=== PATIENT | female | born 1950 | race Caucasian/White ===

== ENCOUNTER 2022-02-24 11:22 | Emergency (ER) | payer MEDICARE, OTHER, SELFPAY ==
[2022-02-24 11:28] VITALS: BP 166/98; PULSE 102; RESP 18; TEMP 36.1; O2SAT 98; BMI 29.7
--- NOTE | 2022-02-24 13:00 | ED.GENADULT ---
HPI - General Adult General Chief complaint: Skin/Abscess/Foreign Body Stated complaint: Rash Time Seen by Provider: 02/24/22 11:56 History of Present Illness HPI narrative: Patient complains of itchy rash which is spreading over body which started several days ago she went to Urgent Care they told her it is likely poison suri and gave her a Medrol Dosepak and a prescription for hydrocortisone cream but the rash is still spreading to more parts of the body and is very itchy There is no pain no difficulty breathing no swelling in the mouth or of the tongue or the lips Related Data Previous Rx's Medication Instructions Recorded cetirizine 10 mg capsule 10 mg PO DAILY PRN allergy 02/24/22 symptoms #14 caps hydroxyzine HCl 25 mg tablet 50 mg PO BEDTIME PRN itching #20 02/24/22 tabs Allergies Allergy/AdvReac Type Severity Reaction Status Date / Time Penicillins Allergy Rash Verified 02/24/22 11:27 Sulfa (Sulfonamide Allergy Rash Verified 02/24/22 11:27 Antibiotics) Review of Systems Review of Systems: Positive for skin rash Negatives are no fever no chills no dizziness weakness no fainting no feeling faint no headache no neck pain no swelling in the throat lips or tongue no difficulty breathing or swallowing no shortness of breath no chest pain no abdominal pain no nausea or vomiting no joint pains or swelling Yes all other systems are reviewed and are negative PMFSH Past Medical History Source: nursing notes reviewed Social History Social History Advance Directives: No Advance Directives Information Provided: Yes Physical Exam ED Vital Signs: Vital Signs - 24 hr 02/24/22 11:28 Temperature 96.9 F Pulse Rate 102 H Respiratory Rate 18 Blood Pressure 166/98 H Pulse Oximetry 98 Oxygen Delivery Method Room Air BMI result Body Mass Index 29.7 General appearance no acute distress The eyes no redness or discharge The nose not congested The pharynx no swelling of lips tongue uvula or pharynx, no drooling, voice is normal, membranes are moist Neck is supple Respiratory no distress Chest clear to auscultation bilateral Heart no murmur Extremities full range of motion x4 Skin on the right side of the abdomen there is several red patches that are not warm or tender, there is no vesicles, on the left side of the abdomen there are smaller red patchy rash it is on the back of the neck and on both legs Course Course Course Narrative: Patient had been on a Medrol Dosepak which did not bring relief and rash is still spreading Rashes bilateral, no pustules no evidence of cellulitis no vesicles, no pain Case was discussed with Dr. green who saw the patient and agree this is not likely to be cellulitis or shingles, and is very likely a contact dermatitis from poison suri or poison oak and patient is given a longer course of steroids and some antihistamines for itch Well-appearing comfortable patient was discharged Discharge Plan Discharge Clinical Impression: Contact dermatitis Patient Disposition: Home, Self-Care Additional Instructions: We believe the rash is likely poison suri or poison oak We are adding a longer course of prednisone, steroid which often is helpful to reduce the inflammation and stop the rash We are writing for 2 antihistamines, cetirizine which is 1 pill once a day as well as hydroxyzine which is a similar antihistamine which can be taken in addition at night, 1 or 2 pills at night to control itch I have a rest cream available [id number], or calamine lotion may be helpful Follow with primary doctor if not improved Return any time any worse condition or any concerns Prescriptions: New cetirizine 10 mg capsule 10 mg PO DAILY PRN (Reason: allergy symptoms) Qty: 14 0RF hydroxyzine HCl 25 mg tablet 50 mg PO BEDTIME PRN (Reason: itching) Qty: 20 0RF Interventions: ED Discharge Assessment Last Done: 02/24/22 13:25 Discharge Date/Time: 02/24/22 13:28
[2022-02-24] MEDS: predniSONE 20 MG TABLET 60 MG PO (13:14)
[2022-02-24] MEDS: Loratadine 10 MG TABLET PO (13:14)
== END 2022-02-24 13:28 | disposition home or self-care (01) ==
PROVIDERS: Emergency Provider Student in an Organized Health Care Education/Training Program
DX: L25.9 Unspecified contact dermatitis, unspecified cause (principal); R21 Rash and other nonspecific skin eruption
CPT/HCPCS: 99283